=== PATIENT | female | born 1995 ===

== ENCOUNTER 2020-07-08 14:00 | Emergency (ER) | payer SELFPAY ==
[~2020-07-08] VITALS: Ht 170.2 cm; Wt 79.4 kg
--- NOTE | 2020-07-08 14:00 | NUR ---
Patient JULIETA YOST, triaged by RN and transferred to the ED lobby to wait for an available bed.
[2020-07-08 14:04] VITALS: BP 126/88
--- NOTE | 2020-07-08 14:14 | NUR ---
ACTIVELY VOMITING CLEAR/YELLOWISH FLUID---
--- NOTE | 2020-07-08 14:19 | NUR ---
Pt w/c assisted to bed 12.
--- NOTE | 2020-07-08 14:20 | NUR ---
Patient jumped out of w/c and got into bed 12. Patient refusing to answer questions. Patient uncooperative and will not speak when asking questions. Pt refusing to change into a gown. Pt advised to wait for Dr. Disla for evaluation.
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
--- NOTE | 2020-07-08 14:42 | NUR ---
Patient is dry heaving and vomiting into bedside trash can sitting in bedside chair. Dr. Disla made aware.
[2020-07-08] MEDS ORDERED: ONDANSETRON 4 MG/2 ML VIAL IVP ONE (15:50)
[2020-07-08] MEDS ORDERED: NACL 0.9% 1,000 ML IV ONE (15:50)
[2020-07-08] MEDS ORDERED: MORPHINE SULFATE 4 MG/ML SYR IVP ONE (16:00)
[2020-07-08 16:10] LABS: BASOPHILS % (AUTO) 0.2 % (0.0-2.0); EOSINOPHILS # (AUTO) 0.1 K/uL (0-0.4); EOSINOPHILS % (AUTO) 0.7 % (0.0-4.0); HEMATOCRIT 40.7 % (36-48); HEMOGLOBIN 13.2 g/dL (12.0-16.0); LYMPHOCYTES # (AUTO) 1.2 K/uL (2.5-16.5); LYMPHOCYTES % (AUTO) 13.1 % (20.5-51.1); MEAN CORPUSCULAR HEMOGLOBIN 29 pg (27-31); MEAN CORPUSCULAR HGB CONC 32 g/dL (33-37); MEAN CORPUSCULAR VOLUME 90.2 fL (80-94); MONOCYTES # (AUTO) 0.5 K/uL (0.8-1.0); MONOCYTES % (AUTO) 5.6 % (1.7-9.3); NEUTROPHILS # (AUTO) 7.1 K/uL (1.8-7.7); NEUTROPHILS % (AUTO) 80.4 % (42.2-75.2); PLATELET COUNT (AUTO) 272 K/uL (140-450); RED BLOOD CELL COUNT(AUTO) 4.51 MIL/uL (4.20-5.40); WHITE BLOOD COUNT (AUTO) 8.9 K/uL (4.8-10.8)
--- NOTE | 2020-07-08 16:10 | NUR ---
LABS COLLECTED AT IV START
[2020-07-08 16:23] LABS: ANION GAP 17.7 (8-16); ASPARTATE AMINOTRANSFERASE 13 U/L (15-37); CARBON DIOXIDE 23.6 mmol/L (21-32); CHLORIDE 105 mmol/L (98-107); GFR ARICAN-AMERICAN 88 mL/min (>90); GLUCOSE 99 mg/dL (74-106); LIPASE 62 U/L (73-393); POTASSIUM 3.3 mmol/L (3.5-5.1); SODIUM SERUM 143 mmol/L (136-145); TOTAL BILIRUBIN 1.5 mg/dL (0.0-1.0); UREA NITROGEN, BLOOD 10 mg/dL (7-18)
[2020-07-08] MEDS ORDERED: HALOPERIDOL IM 5 MG/ML VIAL IVP ONE (16:30)
[2020-07-08] MEDS ORDERED: diphenhydrAMINE 50 MG/ML VIAL IVP ONE (16:30)
--- NOTE | 2020-07-08 16:44 | NUR ---
PT REFUSING TO GIVE URINE AT THIS TIME
[2020-07-08 17:51] VITALS: BP 112/80
--- NOTE | 2020-07-08 17:52 | NUR ---
Patient discharged with v/s stable. Written and verbal after care instructions given and explained. Patient verbalized understanding. Ambulatory with steady gait. All questions addressed prior to discharge. Advised to follow up with PMD.
== END 2020-07-08 17:52 | disposition home or self-care (01) ==
LOC: MED 14:00
DX: F12.10 Cannabis abuse, uncomplicated (principal); R11.10 Vomiting, unspecified; R53.1 Weakness; R10.9 Unspecified abdominal pain
CPT/HCPCS: 36415; 80053; 83690; 85025; 96361; 96374; 96375; 99284; G0482; J1200; J1630; J2270; J2405; J7030